=== PATIENT | male | born 1995 | race Two or more races ===

== ENCOUNTER 2024-05-14 19:36 | Emergency (ER) | payer MEDICAID, SELFPAY ==
[2024-05-14 20:18] VITALS: BP 145/91; PULSE 72; RESP 18; TEMP 37.2; O2SAT 97
--- NOTE | 2024-05-14 20:37 | PD.EDRME ---
Rapid Medical Screening Exam RME Arrival date/time: 05/14/24 19:36 29 year old male present to Ed for c/o of flu like sx for 3 days I have greeted and performed a focused initial assessment of this patient. A comprehensive ED assessment and evaluation of the patient, analysis of all test results, and completion of the medical decision making process will be conducted by additional ED providers. Chief Complaint: Flu Like Symptoms Time Seen by Provider: 05/14/24 19:44 Vital signs: Vital Signs Temperature 99.0 F 05/14/24 20:18 Pulse Rate 72 05/14/24 20:18 Respiratory Rate 18 05/14/24 20:18 Blood Pressure 145/91 H 05/14/24 20:18 Pulse Oximetry (%) 97 05/14/24 20:18 Oxygen Delivery Method Room Air 05/14/24 20:18
[2024-05-14 20:45] VITALS: TEMP 37.7
[2024-05-14] MEDS: IBUPROFEN TAB 400 MG TABLET 800 MG PO (20:45)
[2024-05-14] MEDS: ONDANSETRON ODT 4 MG TABRAP PO (20:45)
[2024-05-14 21:38] LABS: Strep A Rapid Negative (Negative)
--- NOTE | 2024-05-14 21:39 | PD.EDURI ---
Upper Respiratory Inf. RME/HPI General Chief Complaint: Flu Like Symptoms Stated Complaint: H/A, FEVER, BODY ACHES, COUGH Time Seen by Provider: 05/14/24 19:44 Arrival date/time: 05/14/24 19:36 29 year old male present to emergency room with c/o flu like sx for 3 days SEVERITY: Symptoms are described as being severe with limitations on activities of daily living CONTEXT: The patient is unable to identify any inciting events. DURATION/TIMING: The symptoms started approximately ASSOCIATED SYMPTOMS:headache, fever, bodyaches, cough MODIFYING FACTORS: The patient is unable to identify any alleviating or aggravating symptoms. PERTINENT ROS: no chest pain/shortness of breath no nausea,vomiting, diarrhea, no dizziness/headache no rash no loc/syncope episode no abd/back pain no dsyuria,urgency,frequency REVIEW OF SYSTEMS: See History of Present Illness - with the exception of those mentioned in the history of present illness, all other systems reviewed and reported as negative GENERAL: In general the patient is awake, interactive, in an emergency department gurney. HEAD/EYES/EARS/NOSE/THROAT: normo-cephalic, atraumatic, mucus membranes are moist, anicteric, palpebral conjunctiva is pink, trachea is midline. CARDIOVASCULAR: regular rate and regular rhythm, no murmurs, heart sounds are not distant, strong pulses in all four extremities that are equal and symmetric bilateral upper and lower extremities, normal capillary refill. CHEST/PULMONARY: normal chest rise and fall, good air movement, clear to auscultation bilaterally, normal inspiratory to expiratory ratios without evidence of respiratory distress. NECK: No midline/Paraspinal tenderness, no step off ROM/Strenght intact No Kernig and bruzinski sign. No trauma ABDOMEN: soft, not tender, no masses appreciated BACK: normal range of motion without pain. NEUROLOGICAL: cranio-facial features are symmetric, moves all four extremities equally without obvious limitations or weakness. EXTREMITY: no tenderness to palpation over the long bones or large joints of the bilateral upper and lower extremities, no joint swelling, no joint erythema, no signs of trauma, no unilateral leg swelling and no peripheral edema. SKIN: warm, dry, well-perfused, no jaundice, no rash, no telangiectasias or petechia. PSYCH: calm, cooperative, no evidence of psychosis or agitation RME / HPI RME / HPI Narrative: 05/14/24 19:36 29 year old male present to Ed for c/o of flu like sx for 3 days I have greeted and performed a focused initial assessment of this patient. A comprehensive ED assessment and evaluation of the patient, analysis of all test results, and completion of the medical decision making process will be conducted by additional ED providers. Related Data Previous Rx's ?Medication ?Instructions ?Recorded benzonatate 150 mg capsule 150 mg PO BID PRN cough #14 caps 10/08/22 ibuprofen 400 mg tablet 400 mg PO Q8H PRN fever or pain 10/08/22 #20 tabs benzonatate 150 mg capsule 150 mg PO BID PRN cough #30 caps 05/14/24 ibuprofen 800 mg tablet (IBU) 800 mg PO TID PRN fever #30 tabs 05/14/24 ondansetron 4 mg disintegrating 4 mg PO Q8H PRN nausea and 05/14/24 tablet vomiting #14 tabs Allergies Allergy/AdvReac Type Severity Reaction Status Date / Time No Known Allergies Allergy Verified 10/08/22 10:16 Course Course Course Narrative: Patient presenting with influenza like symptoms.? Obtained influenza A/B screen, which revealed positive influenza.? The following were considered in the patient's differential diagnosis but was not deemed to be consistent with patient's history of present illness and/or physical examination; meningitis, pharyngitis, otitis media, pneumonia, urinary tract infection, peritonsillar abscess, retropharyngeal abscess.? As patient does not present with any signs/symptoms of pneumonia or other complications, deferred CXR or further labwork at this time. Educated patient on diagnosis and natural course of influenza.? Supportive care and preventive measures were discussed.? Continue fluid hydration. Follow up with primary physician in 3-5 days if symptoms continue or new problems arise. Return if having persistent high fever, altered mental status, shortness of breath, uncontrolled vomiting, or other concerns.? ? Plan:? Prescribed tessalon pearls, zofran ibu? Advised patient on support therapies, including rest, advancement of fluids as tolerated, thorough handwashing w/ soap and H2O, taking OTC ibuprofen or acetaminophen as directed, OTC expectorant/antitussive/decongestants as directed. Advised patient to refrain from visiting work, school, or daycares or visiting women, elderly, or those w/ chronic illnesses. Advised patient to return with new or worsening symptoms. Quality Measures none Orders Category Date Time Status Bedside COVID-19 Antigen Test NOW Care 05/14/24 20:36 Active Bedside Influenza A&B Antigen Test NOW Care 05/14/24 20:37 Completed Strep A Rapid Stat Lab 05/14/24 20:41 Completed Ibuprofen Tab [Motrin Tab] Med 05/14/24 20:36 Discontinued 800 mg PO X1 ONE Ondansetron Odt [Zofran Odt] Med 05/14/24 20:36 Discontinued 4 mg PO X1 ONE Vital Signs Vital signs: Vital Signs Temperature 99.0 F 05/14/24 20:18 Pulse Rate 72 05/14/24 20:18 Respiratory Rate 18 05/14/24 20:18 Blood Pressure 145/91 H 05/14/24 20:18 Pulse Oximetry (%) 97 05/14/24 20:18 Oxygen Delivery Method Room Air 05/14/24 20:18 Upper Respiratory Infection Patient data External records reviewed:: [facility] previous records Clinical information provided by:: patient Social determinants that could affect healthcare access:: none Patient has the following chronic illnesses:: none How is presenting disease/condition affected by chronic disease/condition?: no chronic disease Evaluation data The following diagnostics were reviewed and interpreted by me:: lab results Lab and/or radiology exams considered but not ordered:: none Interpretation Summary: + influenza a negative covid/flu b and strep Medications / Prescriptions Medications or Prescriptions considered but not ordered:: none Medication administrations:: Medication Administration History Discontinued Medications Ibuprofen (Ibuprofen Tab 400 Mg Tablet) 800 mg PO X1 ONE Stop: 05/14/24 20:37 Last Admin: 05/14/24 20:45 Dose: 800 mg Documented By: RANDY Ondansetron HCl (Ondansetron Odt 4 Mg Tabrap) 4 mg PO X1 ONE; Protocol Stop: 05/14/24 20:37 Last Admin: 05/14/24 20:45 Dose: 4 mg Documented By: RANDY as stated above Consultations Consultation(s) initiated? (list below): No Diagnosis Upper Respiratory Differential Diagnosis: upper respiratory infection, viral infection, bronchitis, influenza, pharyngitis and other (strep ) Most likely diagnosis given after review of the tests above:: flu a Admission Indicated Admission indicated?: not indicated Admission Request Was there a request for admission?: No Disposition Plan Disposition Plan: Discharge Discharge Attestation Discharge Attestation: The patient and all family members were given an opportunity to ask questions and understood the discharge instructions. Discharge instructions specifically effects, indications for sooner follow up or return to the emergency department, and the expected course of current diagnosis. Patient condition: Stable Discharge Plan Plan Patient Disposition: HOME (Self Care) Health Concerns: Follow with PMD as directed Take tylenol or motrin as need Return to ED if sx worsen Prescriptions/Referrals Prescriptions/Med Rec: New ibuprofen [IBU] 800 mg tablet 800 mg PO TID PRN (Reason: fever) Qty: 30 0RF ondansetron 4 mg tablet,disintegrating 4 mg PO Q8H PRN (Reason: nausea and vomiting) Qty: 14 0RF benzonatate 150 mg capsule 150 mg PO BID PRN (Reason: cough) Qty: 30 0RF No Action ibuprofen 400 mg tablet 400 mg PO Q8H PRN (Reason: fever or pain) Qty: 20 0RF benzonatate 150 mg capsule 150 mg PO BID PRN (Reason: cough) Qty: 14 0RF Problem List Clinical Impression: Influenza Patient/Caregiver Discharge Instructions Education Materials: ED Influenza (Adult) Print Language: Tajik Stand Alone Forms: Bette Award Info., Patient Portal Info Letter
== END 2024-05-14 21:52 | disposition home or self-care (01) ==
LOC: SERX 22:11
PROVIDERS: Physician Assistant; Emergency Provider Emergency Medicine
DX: J10.1 Influenza due to other identified influenza virus with other respiratory manifestations (principal)
CPT/HCPCS: 87400; 87651; 87811; 99283; Q0162; A9270